=== PATIENT | male | born 1980 | race Caucasian/White ===

== ENCOUNTER → 2022-10-30 | Outpatient (CLI) | payer SELFPAY, OTHER ==
--- NOTE | 2022-10-30 10:52 | ECHOCS_ITS ---
Reason For Study: Hyperglycemia Procedure This was a 2D Doppler, Color Flow transthoracic echocardiogram. The study was technically difficult. Contrast injection was performed. Exam performed in department. Left Ventricle Normal LV size. Mild concentric left ventricular hypertrophy. Left ventricular systolic function is normal. The estimated ejection fraction is 60 %. Normal diastology for age. No regional wall motion abnormalities noted. Right Ventricle Normal RV size. Normal systolic function. Atria The left and right atria are normal. Mitral Valve The mitral valve is structurally normal. No prolapse or stenosis seen. No mitral valve insufficiency. Tricuspid Valve Normal tricuspid valve. Trivial tricuspid valve insufficiency. Unable to estimate RV systolic pressure due to insufficient tricuspid regurgitant envelope. Aortic Valve Trisinus/trileaflet aortic valve. No aortic valve insufficiency. Pulmonic Valve The pulmonic valve is not well visualized. Great Vessels Normal aortic root. Pericardium/Pleural No pericardial effusion. Medication 20 gauge I.V. with prn adaptor inserted into left arm. Diluted definity 2ml given slow IV push to enhance endocardial definition. MMode/2D Measurements & Calculations LVIDd: 5.3 cm IVSd: 1.2 cm Ao root diam: 3.4 cm LVIDs: 3.9 cm LVPWd: 1.2 cm LA dimension: 3.7 cm RVDd: 4.1 cm FS: 26.6 % LAV(MOD-bp): 61.3 ml LVAd ap4: 31.0 cm2 SV(MOD-sp4): 50.0 ml LAV(MOD-bp) Indexed: 24.8 ml/m2 LVLd ap4: 8.3 cm LAV(MOD-sp2): 69.3 ml EDV(MOD-sp4): 96.3 ml LAV(MOD-sp4): 49.6 ml EDV(sp4-el): 98.8 ml LVAs ap4: 20.2 cm2 LVLs ap4: 7.5 cm ESV(MOD-sp4): 46.2 ml ESV(sp4-el): 46.2 ml EF(MOD-sp4): 52.0 % EF(sp4-el): 53.2 % SV(sp4-el): 52.6 ml LA A4 area: 19.2 cm2 RA A4 area: 19.7 cm2 TAPSE: 1.8 cm Time Measurements MV dec time: 0.25 sec Doppler Measurements & Calculations MV E max oziel: 85.1 cm/sec Lat Peak E' Oziel: 11.9 cm/sec Med Peak E' Oziel: 9.3 cm/sec MV A max oziel: 67.9 cm/sec E/E' lat: 7.1 E/E' med: 9.1 MV E/A: 1.3 MV V2 max: 85.7 cm/sec MV P1/2t max oziel: 84.7 cm/sec Ao V2 max: 130.9 cm/sec MV max P.9 mmHg MV P1/2t: 50.2 msec Ao max P.9 mmHg MV V2 mean: 47.7 cm/sec Ao V2 mean: 93.6 cm/sec MV mean P.1 mmHg MV dec slope: 494.3 cm/sec2 Ao mean P.0 mmHg MV V2 VTI: 23.2 cm MVA(P1/2t): 4.4 cm2 Ao V2 VTI: 28.0 cm AV (velocity ratio): 0.88 LV V1 max: 116.1 cm/sec PA V2 max: 93.1 cm/sec LV V1 max P.4 mmHg PA V2 mean: 66.4 cm/sec LV V1 mean P.4 mmHg LV V1 mean: 88.2 cm/sec LV V1 VTI: 24.5 cm ECHO/Echo Complete W/ Contrast Interpretation Summary The estimated ejection fraction is 60 %. Mild concentric left ventricular hypertrophy. The study was technically difficult. The study was technically difficult. Contrast injection was performed. Ordering Physician: Jasiel Lo Referring Physician: Jasiel Lo Performed By: Leonidas Oconnor and Student
--- NOTE | 2022-10-31 12:35 | STRESSREP_ITS ---
Stress Test Report Date: Procedure: Exercise tolerance test Indications: Chest pain Consent: Per the patient Procedure: The patient exercised on a Alvarez protocol for 9 minutes achieving a peak heart rate of 164 bpm (93% predicted maximal heart rate) with a peak blood pressure 220/104 mmHg and a peak MET capacity of approximately 10.1 MET's. The baseline ECG demonstrated normal sinus rhythm. The peak exercise ECG demonstrated no ischemic changes. There were no cardiac dysrhythmias pretest, during exercise, or recovery. The functional capacity was considered adequate. The patient had no complaints of chest discomfort during exercise or recovery. The examination was discontinued secondary to target heart rate being achieved. Impression: 1. Technically adequate (percent predicted maximal heart rate greater than 85%) exercise tolerance test 2. Peak exercise ECG with no ischemic changes 3. There were no cardiac dysrhythmias during exercise or recovery This note was generated with [employer] software. It may contain incorrect words, spelling, and punctuation that were not noted in checking the note before signing.
== END | disposition home or self-care (01) ==
PROVIDERS: PCP Family Medicine; Referring Provider Internal Medicine Cardiovascular Disease; Visit Provider Internal Medicine Cardiovascular Disease
DX: R00.2 Palpitations (principal); R07.9 Chest pain, unspecified; R73.9 Hyperglycemia, unspecified; I10 Essential (primary) hypertension; E66.9 Obesity, unspecified
CPT/HCPCS: 93017; 93306; Q9957; A4216; C8929

== ENCOUNTER → 2024-12-08 | Outpatient (CLI) | payer OTHER, SELFPAY ==
[2024-12-08 12:19] LABS: Anion Gap 12 (5-15); BUN 11 mg/dL (4-19); BUN/Creat Ratio 12.5 RATIO (10-20); Calcium,Total 10.0 mg/dL (7.6-11.0); Carbon Dioxide 24.5 mmol/L (21.0-32.0); Chloride 102 mmol/L (98-108); Glucose 131 mg/dL (70-99); Potassium 4.1 mmol/L (3.3-5.1)
== END | disposition home or self-care (01) ==
LOC: LAB 10:57
PROVIDERS: PCP Family Medicine; Referring Provider Nurse Practitioner Family; Visit Provider Nurse Practitioner Family
DX: I10 Essential (primary) hypertension (principal)
CPT/HCPCS: 36415; 80048